=== PATIENT | female | born 1950 | race Caucasian/White ===

== ENCOUNTER 2017-02-16 06:08 | Inpatient (IN) | payer MEDICARE ==
[2017-02-16] VITALS (21 sets, daily range): BP systolic 50–116; BP diastolic 26–53
[~2017-02-16] VITALS: Ht 175.3 cm; Wt 121.1 kg
--- NOTE | 2017-02-16 06:08 | NUR ---
Ignacio hannon in [facility] - 02/16/17 at 0612 by MEDSTEPHANIE BIBA ALS TO ER BED 3
--- NOTE | 2017-02-16 06:08 | NUR ---
0604 BIBA TO ER BED 3
--- NOTE | 2017-02-16 06:10 | NUR ---
66Y/F PT. BIBA TO ED WITH C/O SOB X 3 MINS. PER EMS, PT. HAVING SOB, O2 SAT% ON SCENE, ALBUTEROL GIVEN, ON CPAP. HX. CA PANCREASE, DM. AAO X2, UNABLE TO AMBULATE AT THIS TIME, RESPIRATIONS ON CPAP, LABORED, O 2 SAT 95 %. BILAT LUNGS RHONCHI. SKIN WARM AND DRY. VSS, BP HYPOTENSION 76/26, EKG SR, ER MD MADE AWARE OF PT. STATUS.
--- NOTE | 2017-02-16 06:15 | NUR ---
PT CAME THRU ED WITH SOB. PT PLACED ON BIPAP . SETTINGS ARE 12/5, 12, 100%. PT IS AWAKE AND ALERT. DIMINISHED BS. BIPAP IS CONNECTED TO RED OUTLET. ALARMS ARE AUDIBLE. AMBU BAG AT BEDSIDE. WILL CONTINUE TO MONITOR.
[2017-02-16] MEDS ORDERED: NACL 0.9% 1,000 ML IV ONE ×3 (06:30→09:50)
[2017-02-16] MEDS ORDERED: LEVOFLOXACIN 750 MG/D5W PREMIX 150 ML IV ONE (06:40)
[2017-02-16 06:53] LABS: APPEARANCE,URINE HAZY (CLEAR); BILIRUBIN,URINE 3+ (NEGATIVE); BLOOD, URINE 3+ (NEGATIVE); COLOR,URINE BROWN (YELLOW); LEUKOCYTE ESTERASE ,URINE NEGATIVE (NEGATIVE); PROTEIN,URINE TRACE (NEGATIVE); UGLUCOSE TRACE (NEGATIVE)
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
[2017-02-16 06:56] LABS: ICTOTEST POSITIVE (NEGATIVE)
[2017-02-16 07:02] LABS: NITRITE, URINE POSITIVE (NEGATIVE)
[2017-02-16 07:04] LABS: BACTERIA,URINE 2+ /HPF (None Seen); CALCIUM OXALATE CRYSTALS,UR 0-10 /HPF (None Seen); SQUAMOUS EPITHELIAL CELL,UR 0-3 (FEW) /LPF (0-3 (FEW)); URINE AMORPHOUS URATE 1+ /HPF (None Seen)
[2017-02-16 07:05] LABS: RBC,URINE 20-50 /HPF (0-5)
[2017-02-16 07:07] LABS: HEMATOCRIT 27.8 % (36-48); HEMOGLOBIN 8.9 g/dL (12.0-16.0); MEAN CORPUSCULAR HEMOGLOBIN 32 pg (27-31); MEAN CORPUSCULAR HGB CONC 32 g/dL (33-37); MEAN CORPUSCULAR VOLUME 98 fL (80-94); PLATELET COUNT (AUTO) 327 K/uL (140-450); RED BLOOD CELL COUNT(AUTO) 2.83 MIL/uL (4.20-5.40); RED CELL DISTRIBUTION WIDTH 19.7 % (11.6-13.7); WHITE BLOOD COUNT (AUTO) 6.5 K/uL (4.8-10.8)
--- NOTE | 2017-02-16 07:15 | NUR ---
PT. AAO X4, UNABLE TO AMBULATE AT THIS TIME. RESPIRATIONS ON BI-PAP EVEN AND UNLABORED. VS T98.6 BP71/47 P77, R19, O2 SAT 100% DR. RODRIGUEZ MADE AWARE, NEW ORDER RECIEVED NSS 1000 ML IV WIDE OPEN BOLUS GIVEN. WILL CONTINUE TO MONITOR. Addendum: 02/16/17 at 0729 by MEDSP CONTINENT OF BLADDER ON F/C 16FR/10ML
[2017-02-16 07:17] LABS: ANION GAP 10.5 (8-16); CALCIUM 7.5 mg/dL (8.5-10.1); CARBON DIOXIDE 27.7 mmol/L (21-32); CREATININE 1.5 mg/dL (0.6-1.3); POTASSIUM 5.2 mmol/L (3.5-5.1)
[2017-02-16 07:21] LABS: BAND % (MANUAL) 14 % (0-8); EOSINOPHILS % (MANUAL) 2 % (0-4); LYMPHOCYTES % (MANUAL) 2 % (20-46); MONOCYTES % (MANUAL) 9 % (5-12); NEUTROPHILS % (MANUAL) 73 (43-65)
[2017-02-16 07:22] LABS: ANISOCYTOSIS 1+
[2017-02-16 07:23] LABS: ALBUMIN 1.5 g/dL (3.4-5.0); TOTAL BILIRUBIN 6.9 mg/dL (0.0-1.0); TOTAL PROTEIN, SERUM 4.8 g/dL (6.4-8.2)
--- NOTE | 2017-02-16 07:24 | NUR ---
RT at bedside to perform ABG.
[2017-02-16 07:28] LABS: LACTIC ACID 2.6 mmol/L (0.4-2.0)
--- NOTE | 2017-02-16 07:30 | NUR ---
REPORT GIVEN TO CHUY PIZANO. PT. RESTING IN BED, NO S/SX OF DISTRESSS AT THIS TIME.
[2017-02-16] MEDS ORDERED: ACET-512 PO (07:35)
[2017-02-16] MEDS ORDERED: INSU-1163 SQ (07:35)
[2017-02-16] MEDS ORDERED: CARV25TA2 PO (07:35)
[2017-02-16] MEDS ORDERED: SIMV20TA6 PO (07:35)
[2017-02-16] MEDS ORDERED: DOCU1TAB73 PO (07:35)
[2017-02-16] MEDS ORDERED: [UNRECOGNIZED DRUG - CODE] PO (07:35)
[2017-02-16] MEDS ORDERED: ORE25 PO (07:35)
[2017-02-16] MEDS ORDERED: FENT1PAT3 TD (07:35)
[2017-02-16] MEDS ORDERED: GABA-638 PO (07:35)
[2017-02-16] MEDS ORDERED: NORT25CA PO (07:35)
[2017-02-16] MEDS ORDERED: LOV40I SUBQ (07:35)
--- NOTE | 2017-02-16 07:40 | NUR ---
ABG DRAWN ON RR WITHOUT INCIDENT AND RESULTS GIVEN TO DR. RODRIGUEZ AND PT WAS TAKEN OFF BIPAP AND PLACED ON 2LNC FAMILY AT BEDSIDE
--- NOTE | 2017-02-16 07:42 | NUR ---
AT 0740 PT TAKEN OFF BIPAP, DR RODRIGUEZ AT BEDSIDE AT 0742 1MG DILAUDID GIVEN VIA RIGHT HAND 22G PER DR RODRIGUEZ ORDER AT 0744 NS 0.9% GIVEN W/O VIA RIGHT HAND 22G BY CHUY MENA PER DR RODRIGUEZ ORDER
[2017-02-16] MEDS ORDERED: HYDROmorphone 1 MG/ML AMP ONE (07:44)
[2017-02-16] MEDS ORDERED: HYDROmorphone 1 MG/ML AMP IVP ONE (07:50)
[2017-02-16 07:52] LABS: INR 1.4 (0.8-1.2); PROTHROMBIN TIME 13.9 secs (10.8-13.4)
--- NOTE | 2017-02-16 08:00 | NUR ---
2ND 1L 0.9% NS DONE
--- NOTE | 2017-02-16 08:08 | NUR ---
PT PROVIDED WITH TWO PILLOWS ON EACH LEG PER PTS REQUEST, POSITIONED AT PT'S COMFORT PER PT'S REQUEST D/T C/O OF SACRAL AND RIGHT KNEE PAIN, AT BEDSIDE, DR RODRIGUEZ UPDATING THE PT AT BEDSIDE, BEDRAILS UPX2, WILL CONTINUE TO MONITOR
--- NOTE | 2017-02-16 09:05 | NUR ---
RT at bedside to perform second ABG as requested.
[2017-02-16 09:07] LABS: BLOOD GAS BASE EXCESS -2.2 mmol/L (-2.0-2.0); BLOOD GAS HCO3 22.1 mmol/L; BLOOD GAS PCO2 35.9 mmHg (20-50); BLOOD GAS PH 7.408 (7.35-7.45); BLOOD GAS PO2 242.7 mmHg
[2017-02-16 09:08] LABS: BLOOD GAS O2 SAT% 99.9 % (92.0-98.5)
[2017-02-16 09:23] LABS: BLOOD GAS BASE EXCESS -0.3 mmol/L (-2.0-2.0); BLOOD GAS HCO3 25.5 mmol/L; BLOOD GAS PCO2 47.6 mmHg (20-50); BLOOD GAS PH 7.347 (7.35-7.45); BLOOD GAS PO2 66.5 mmHg
[2017-02-16 09:24] LABS: BLOOD GAS O2 SAT% 92.6 % (92.0-98.5)
--- NOTE | 2017-02-16 09:40 | NUR ---
PT PLACED ON NR MASK AT [address] RODRIGUEZ
[2017-02-16] MEDS ORDERED: DOBUTamine 500 MG/D5W PREMIX 250 ML IV ONE (09:55)
--- NOTE | 2017-02-16 10:19 | NUR ---
Dr. Levi at bedside to evaluate patient.
--- NOTE | 2017-02-16 10:25 | NUR ---
VONDAMIN INCREASE TO [address] RODRIGUEZ
--- NOTE | 2017-02-16 10:52 | NUR ---
Patient will be admitted to care of DR GARCIA. Admited to ICU. Will go to room 3. Belongings list completed. Report to CHUY VILLANUEVA.
[2017-02-16] MEDS ORDERED: DOCUSATE SODIUM 100 MG GELCAP PO PRN (10:55)
[2017-02-16] MEDS ORDERED: HYDROcodone/APAP 5/325 MG 1 TAB TAB PO PRN (10:55)
[2017-02-16] MEDS ORDERED: ACETAMINOPHEN 325 MG TAB PO PRN (10:55)
[2017-02-16] MEDS ORDERED: ONDANSETRON 4 MG/2 ML VIAL IVP PRN (10:55)
[2017-02-16] MEDS ORDERED: NACL 0.9% 1,500 ML IV ONE (11:00)
--- NOTE | 2017-02-16 11:05 | NUR ---
RECEIVED PT FROM ER BY OZZY. PT OPEN EYES, NO VERBAL AT THIS TIME. +2 JAUNDICE NOTED TO THE WHOLE BODY. BEDSIDE MONITOR SHOWS SR. BP 62/46.PT ON NON REBREATHER HZP7=900%. NO S/S OF RESPIRATORY DISTRESS NOTED. ABDOMEN SOFT WITH ACTIVE BOWEL SOUNDS. SALCEDO CATH IN PLACE WITH CLOUDY BROWNISH URINE NOTED. IV TO RIGHT WRIST #22 RUNNING DOBUTAMINE AT 40ML/HR. THERE IS AN IV TO LEFT WRIST # 20, SALINE LOCKED. NON PITTING EDEMA NOTED TO BOTH LOWER EXTREMITIES AND LEFT UPPER EXTREMITIES. ALL EXTREMITIES ARE FLACCID. HOB ELEVATED AT 30 DEGREES WITH LOW BED POSITION. WILL CONTINUE TO MONITOR.
[2017-02-16] MEDS ORDERED: NOREPINEPHRINE 8 MG in DEXTROSE 5% 250 ML IV PRN (11:25)
[2017-02-16 11:29] LABS: ALBUMIN 1.2 g/dL (3.4-5.0); FREE T4 (FREE THYROXINE) 0.9 ng/dL (0.76-1.46); THYROID STIMULATING HORMONE 2.53 uIU/mL (0.34-3.76); TOTAL BILIRUBIN 6.4 mg/dL (0.0-1.0); TOTAL PROTEIN, SERUM 4.1 g/dL (6.4-8.2)
[2017-02-16] MEDS: NACL 0.9% 1,000 ML IV SCH ×2 (11:30→17:16)
[2017-02-16] MEDS ORDERED: NOREPINEPHRINE 4 MG/4 ML VIAL IV PRN (11:35)
[2017-02-16] MEDS ORDERED: NOREPINEPHRINE 4 MG in DEXTROSE 5% 250 ML IV PRN (11:35)
[2017-02-16] MEDS ORDERED: NOREPINEPHRINE 4 MG in DEXTROSE 5% 250 ML IV SCH (11:35)
--- NOTE | 2017-02-16 11:52 | NUR ---
STARTED PT ON LEVOPHED DRIP AT 5MCG/MIN.
[2017-02-16 11:59] LABS: CHOL/HDL RATIO 32.3 (1-4.5)
[2017-02-16] MEDS ORDERED: PHENYLEPHRINE 10 MG in NACL 0.9% 250 ML IV PRN (12:55)
--- NOTE | 2017-02-16 13:10 | NUR ---
DR. RODRIGUEZ RESIDENT PRESENT AT BEDSIDE DISCUSSED WITH PT'S REGARDING PT'S CONDITION AND PROGRESS. PT'S DECIDED TO CHANGE CODE STATUS FROM DNR TO COMFORT MEASURES ONLY/ PALLIATIVE CARE. PT'S WANT TO STOP VASOPRESSOR DRIP. PT'S SIGNED CODE STATUS FORM.
[2017-02-16] MEDS: HYDROmorphone-HP 10 MG in NACL 0.9% 50 ML IV PRN (14:18)
--- NOTE | 2017-02-16 14:18 | NUR ---
STARTED PT ON HYDROMORPHONE-HP 10 MG IN 0.9% NS 50 ML DRIP.
--- NOTE | 2017-02-16 15:00 | NUR ---
STOPPED LEVOPHED DRIP PER FAMILY REQUEST AND DR. MICHAEL COHN.
[2017-02-16] MEDS ORDERED: SCOPOLAMINE 1.5 MG/72 HR PATCH TD PRN (15:20)
[2017-02-16] MEDS ORDERED: BISACODYL 10 MG SUPP RC PRN (15:20)
[2017-02-16 15:35] LABS: AMPHETAMINE, URINE NEG. ng/ml (NEG <=1000); BARBITURATE, URINE NEG. ng/ml (NEG <=200); BENZODIAZEPINE, URINE NEG. ng/mL (NEG <=200); CANNABINOID, URINE NEG. ng/mL (NEG <=50); COCAINE, URINE NEG. ng/mL (NEG <=300); OPIATE, URINE NEG. ng/mL (NEG <=2000); PHENCYCLIDINE SCREEN,URINE NEG. ng/mL (NEG <=25)
--- NOTE | 2017-02-16 17:50 | NUR ---
PT TEMP 96.8, OFFERED PT MANI HUDDER TO KEEP PT WARM.
--- NOTE | 2017-02-16 18:35 | NUR ---
PT AWAKE, ALERT AT THIS TIME. NO S/S OF RESPIRATORY DISTRESS NOTED. PT'S AT BEDSIDE.
--- NOTE | 2017-02-16 19:31 | NUR ---
RECEIVED REPORT FROM CHUY ZUÑIGA.
--- NOTE | 2017-02-16 20:00 | NUR ---
PATIENT RESTING IN BED, AT THE BEDSIDE. NO SIGNS OF ACUTE RESPIRATORY DISTRESS. PATIENT DOES NOT FOLLOW COMMANDS. IS ORIENTED TO SELF. PATIENT ON NONREBREATHER MASK AT 10LPM. O2 SATURATION AT 93%. RHONCHI ON AUSCULTATION. PATIENT IS NPO WITH SIPS OF WATER. SR ON THE MONITOR. HYPOTENSIVE, WAS ON LEVOPHED DRIP BUT FAMILY REQUESTED THE DRIP BE DISCONTINUED. 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 PATIENT HAVE TYPE 1 DIABETES. PATIENT HAS SALCEDO CATHETER IN PLACE. BEDBOUND. LEFT LEG DVT. NO COMPLAINTS OF PAIN, PATIENT IS ON A DILAUDID DRIP. STANDARD PRECAUTIONS IN PLACE. WILL CONTINUE TO MONITOR PATIENT
--- NOTE | 2017-02-16 22:15 | NUR ---
PATIENT HAD A BOWEL MOVEMENT. PATIENT WAS CLEANED AND BEDDING WAS REPLACED. PATIENT IS HYPOTENSIVE, WILL CONTINUE TO MONITOR PATIENT.
[2017-02-17] VITALS (18 sets, daily range): BP systolic 66–100; BP diastolic 20–55
--- NOTE | 2017-02-17 | NUR ---
PTS CONDITION REMAINS UNCHANGED. STILL ON DILAUDID DRIP AT 5ML/HR.PT SHAKES HEAD WHEN ASKED IF IN PAIN.02SAT 100%; ON AND OFF NON REBREATHER MASK.PT SOMETIMES REMOVE MASK.
[2017-02-17] MEDS: HYDROmorphone-HP 10 MG in NACL 0.9% 50 ML IV PRN ×3 (01:56→16:00)
--- NOTE | 2017-02-17 02:56 | NUR ---
PTS SON AT BEDSIDE.UPDATED WITH PTS PRESENT CONDITION.PT DOZING ON AND OFF,STILL WITH MANI HUGGER IN PLACE.TEMP 96.0
--- NOTE | 2017-02-17 04:30 | NUR ---
BM NOTED.MORNING CARE RENDERED.PT TOLERATING ADLs. REPOSITIONED.NO SIGNS OF PAIN NOTED
--- NOTE | 2017-02-17 07:20 | NUR ---
GAVE REPORT TO CHUY ZUÑIGA.
--- NOTE | 2017-02-17 07:30 | NUR ---
RECEIVED REPORT FROM PERSONAL PROTECTION SPECIALIST RN. PT OPENS EYES, DOES NOT FOLLOW COMMANDS. PUPILS UNEQUAL,LEFT 4MM, RIGHT 3MM, BOTH ARE SLUGGISH.BEDSIDE MONITOR SHOWS SR. PT ON NON REBREATHER MASK 10L/MIN, NO S/S OF RESPIRATORY DISTRESS NOTED. PT ON HYDROMORPHONE 5ML/HR= 1MG/HR AND 0.9%NS RUNNING AT 50 ML/HR . SITE INTACT AND PATENT. SALCEDO CATH IN PLACE WITH SCANT AMOUNT OF BROWN URINE NOTED. EDEMA TO BOTH LOWER EXTREMITIES AND LEFT UPPER EXTREMITIES. MORNING CARE GIVEN. HOB ELEVATED 30 DEGREES WITH LOW BED POSITION. WILL CONTINUE TO MONITOR.
--- NOTE | 2017-02-17 08:05 | NUR ---
TURNED AND REPOSITIONED PT. PT HAD SMALL AMOUNT OF SOFT YELLOW STOOL, CLEANED PT.
[2017-02-17] MEDS ORDERED: FAMOTIDINE 20 MG TAB PO SCH (09:00)
[2017-02-17] MEDS ORDERED: PANTOPRAZOLE 40 MG INJ VIAL IVP SCH (09:00)
[2017-02-17] MEDS ORDERED: LORazepam 2 MG/ML VIAL IM/IVP PRN (09:15)
--- NOTE | 2017-02-17 09:42 | NUR ---
MRSA NARES POSITIVE REPORT RECEIVED, NOTIFIED DR. RODRIGUEZ RESIDENT. INSTRUCTIONS GIVEN TO PT AND PT'S . PT'S VERBALIZED UNDERSTANDING.
--- NOTE | 2017-02-17 10:10 | NUR ---
[facility] CASE MANAGEMENT NAME Davis CALLED IN TO UPDATE IN PT'S CONDITIONS. PER Davis : KEEP THE PATIENT IN THIS HOSPITAL TODAY AND WILL CALL TO CHECK PT CONDITIONS TOMORROW. PT'S WAS INFORMED.
--- NOTE | 2017-02-17 12:05 | NUR ---
TURNED AND REPOSITIONED PT, PT HAD SMALL AMOUNT OF SOFT LIGHT YELLOW STOOL, CLEANED PT.
[2017-02-17] MEDS: NACL 0.9% 1,000 ML IV SCH (12:24)
[2017-02-17] MEDS ORDERED: CHLORHEXADINE GLUC 2% CLOTH TP SCH (14:00)
[2017-02-17] MEDS ORDERED: BACITRACIN OINT 15000 UNITS/30 GM TUBE TP SCH (14:00)
--- NOTE | 2017-02-17 14:06 | NUR ---
TURNED AND REPOSITIONED PT. PT HAS IRREGULAR AND SHALLOW BREATH PATTERN AT THIS TIME.
[2017-02-17] MEDS ORDERED: FUROSEMIDE 40 MG/4 ML VIAL IVP SCH (16:07)
--- NOTE | 2017-02-17 16:20 | NUR ---
PT UNRESPONSIVE TO NAME STIMULI OR TACTILE STIMULI. STILL ON NON REBREATHER FIO2 =100% MASK, NO SOB. BEDSIDE MONITOR SHOWS SR. TURNED AND REPOSITIONED PT, ORAL CARE GIVEN. BED BATH GIVEN. TEMP CHECKED 98F. TURNED OFF WARM BLANKET , WILL GIVE PATIENT AGAIN WHEN PATIENT NEEDS. PT'S AT BED SIDE.
--- NOTE | 2017-02-17 17:53 | NUR ---
PT DNR STATUS. UNRESPONSIVE TO NAME STIMULI OR TACTILE STIMULI. ON NON REBREATHER FIO2 =100%.BEDSIDE MONITOR SHOWS HR 59, NIBP 65/28. SPO2 81%, RR 14. FAMILY AT BEDSIDE.
--- NOTE | 2017-02-17 17:56 | NUR ---
BEDSIDE HR 41, NIBP 47/27. SPO2 78%, RR 8. FAMILY AT BEDSIDE.
--- NOTE | 2017-02-17 17:59 | NUR ---
BEDSIDE MONITOR SHOWS ASYSTOLE, NIBP 47/27. SPO2 54%.
--- NOTE | 2017-02-17 18:06 | NUR ---
DR.THEODORE RODRIGUEZ AT BEDSIDE TO ASSESS PATIENT. FAMILY AT BEDSIDE. PRONOUNCED PATIENT .PT'S AWARE.
--- NOTE | 2017-02-17 18:16 | NUR ---
CALLED [facility] , SPOKE TO MERCEDES, PER MERCEDES THEY RELEASE THIS CASE.CASE # [id number].
--- NOTE | 2017-02-17 18:30 | NUR ---
CALLED [facility] [phone], SPOKE TO BARNEY, PER BARNEY SHE WILL HAVE CHROME TANNER TO CALL US BACK.
--- NOTE | 2017-02-17 19:26 | NUR ---
[facility] HOLE DIGGER OPERATOR DORA HERNANDEZ CALLED BACK, GIVEN ALL THE INFORMATION THAT HE HAD REQUESTED. PER DORA,PATIENT IS NOT HOLE DIGGER OPERATOR CASE AND HE RELEASED THE CASE TO FAMILY WITH
--- NOTE | 2017-02-17 19:31 | NUR ---
RECEIVED REPORT FROM CHUY ZUÑIGA RN
--- NOTE | 2017-02-17 20:42 | NUR ---
CALLED AND SPOKE WITH , YAJAIRA GALE, FAMILY CONFIRMED TO RELEASE THE PATIENT TO [facility]. WILL CALL [facility] IN [place] [phone]
--- NOTE | 2017-02-17 21:20 | NUR ---
CALLED [facility] [place], SPOKE TO VIVIANA, INFORMATION REQUESTED ABOUT PATIENT GIVEN, ESTIMATED PICKUP TIME 2 HOURS.
--- NOTE | 2017-02-17 22:55 | NUR ---
ARA COOK FROM [facility] ON THE UNIT. CHECKED THE PATIENT AND ACCOUNTED FOR HER BELONGINGS, EARRING(ATTACHED TO PATIENT) AND PILLOW.
--- NOTE | 2017-02-17 23:05 | NUR ---
PATIENT RELEASED TO ARA COOK FROM [facility], ALL BELONGINGS LEFT WITH BODY. ATTENDANTS AND BODY LEFT THE UNIT AT THIS TIME.
--- NOTE | 2017-02-18 08:06 | NUR ---
[facility] ER REPORT H&P AND NOTE FAXED TO [facility] [phone] PHONE [phone]
== END 2017-02-17 23:05 | disposition expired | DRG 871 ==
LOC: MED 06:08 → MIC 10:57
PROVIDERS: ADMIT Student in an Organized Health Care Education/Training Program; ATTEND Student in an Organized Health Care Education/Training Program
PROC: 5A09357 Assistance with Respiratory Ventilation, Less than 24 Consecutive Hours, Continuous Positive Airway Pressure (ICD-10-PCS; principal; 2017-02-16)
DX: A41.9 Sepsis, unspecified organism (principal); R65.21 Severe sepsis with septic shock; J69.0 Pneumonitis due to inhalation of food and vomit; J96.01 Acute respiratory failure with hypoxia; E43 Unspecified severe protein-calorie malnutrition; N39.0 Urinary tract infection, site not specified; C25.9 Malignant neoplasm of pancreas, unspecified; E87.1 Hypo-osmolality and hyponatremia; C78.00 Secondary malignant neoplasm of unspecified lung; D53.9 Nutritional anemia, unspecified; E87.5 Hyperkalemia; E10.9 Type 1 diabetes mellitus without complications; Z88.0 Allergy status to penicillin; Z88.8 Allergy status to other drugs, medicaments and biological substances; Z88.6 Allergy status to analgesic agent; Z91.041 Radiographic dye allergy status; Z91.040 Latex allergy status; I46.8 Cardiac arrest due to other underlying condition; Z66 Do not resuscitate; G89.29 Other chronic pain
CPT/HCPCS: 36415; 36600; 51702; 71010; 80053; 80076; 80305; 81001; 82150; 82803; 82948; 83036; 83605; 83690; 83880; 84439; 84443; 84484; 85025; 85610; 87040; 87081; 87086; 87186; 93005; 96361; 96365; 96375; 99291; J1170; J1940; J1956; J2370; J3490; J7030; J7060; Q0092